=== PATIENT | male | born 1975 | race Caucasian/White ===

== ENCOUNTER 2021-10-22 07:15 | Emergency (ER) | payer BC, OTHER ==
[2021-10-22 07:54] VITALS: BP 133/81; PULSE 92; TEMP 98.1; BMI 31.7
[2021-10-22] MEDS ORDERED: KETOROLAC TROMETHAMINE 30 MG/1 ML VIAL IVPUSH ONE (09:17)
[2021-10-22] MEDS ORDERED: MAG HYDROX/AL HYDROX/SIMETH 30 ML UNIT-DOSE CUP PO ONE (09:17)
[2021-10-22] MEDS ORDERED: MAG HYDROX/AL HYDROX/SIMETH 30 ML UNIT-DOSE CUP ONE (09:34)
[2021-10-22] MEDS ORDERED: KETOROLAC TROMETHAMINE 30 MG/1 ML VIAL ONE (09:34)
[2021-10-22 10:30] LABS: BASO % 0.7 % (0-2.0); HEMATOCRIT 46.2 % (35.4-49); HEMOGLOBIN 15.9 GM/dL (11.7-16.9); LYMPH % 29.5 % (8-40); MCH 30.9 pg (25.7-33.7); MCHC 34.4 g/dl (32.0-35.9); MEAN CELL VOLUME 89.9 fl (80-96); MEAN PLT VOLUME 8.1 fl (7.5-11.1); MONO % 6.6 % (3.8-10.2); NEUT % 62.2 % (42.8-82.8); PLATELET COUNT 222 10^3/uL (134-434); RBC 5.14 M/mm3 (4.00-5.60); RDW 13.4 % (11.9-15.9); WHITE BLOOD COUNT 6.2 K/mm3 (4.0-10.0)
[2021-10-22 11:00] LABS: CHLORIDE 107 mmol/L (98-107); SODIUM 140 mmol/L (136-145)
[2021-10-22 11:04] LABS: BLOOD UREA NITROGEN 17.4 mg/dL (7-18)
[2021-10-22 11:05] LABS: ANION GAP 9 MMOL/L (8-16); CALCIUM 9.1 mg/dL (8.5-10.1); CO2 24 mmol/L (21-32); GLUCOSE,RANDOM 95 mg/dL (74-106)
[2021-10-22 11:06] LABS: LIPASE 116 U/L (73-393)
[2021-10-22 11:08] LABS: SGOT/AST 28 U/L (15-37); SGPT/ALT 47 U/L (13-61)
[2021-10-22 11:09] LABS: TOT PROT 7.6 g/dl (6.4-8.2)
[2021-10-22 11:10] LABS: ALK PHOS 63 U/L (45-117); BILIRUBIN,TOTAL 0.5 mg/dL (0.2-1)
== END 2021-10-22 13:02 | disposition home or self-care (01) ==
LOC: JER 07:15
PROC: 3E0333Z Introduction of Anti-inflammatory into Peripheral Vein, Percutaneous Approach (ICD-10-PCS; principal; 2021-10-22)
DX: R10.13 Epigastric pain (principal)
CPT/HCPCS: 36415; 71046-TC-FY; 71101-TC-LT-FY; 74177-TC; 80053; 83690; 84484; 85025; 93005; 93010; 99285-25; Q9967

== ENCOUNTER 2022-07-29 17:35 | Emergency (ER) | payer OTHER ==
[2022-07-29 17:49] VITALS: BP 147/82; PULSE 86; RESP 18; TEMP 98.4; BMI 32.4
[2022-07-29] MEDS ORDERED: IBUPROFEN 600 MG TABLET (FP) PO ONE ×2 (19:13→19:25)
[2022-07-29] MEDS ORDERED: diazePAM 5 MG TABLET PO ONE (19:13)
[2022-07-29] MEDS ORDERED: ACETAMINOPHEN 500 MG TABLET (FP) PO ONE (19:13)
[2022-07-29] MEDS ORDERED: ACETAMINOPHEN 500 MG TABLET (FP) ONE (19:25)
[2022-07-29] MEDS ORDERED: diazePAM 5 MG TABLET ONE (19:25)
== END 2022-07-29 20:55 | disposition home or self-care (01) ==
LOC: JERFT 17:35
DX: R07.81 Pleurodynia (principal)
CPT/HCPCS: 71046-TC-FY; 71101-TC-LT-FY; 93005; 93010; 99284-25

== ENCOUNTER 2022-09-23 12:19 | Emergency (ER) | payer OTHER ==
[2022-09-23 12:26] VITALS: BP 132/87; PULSE 79; RESP 18; TEMP 97.9; BMI 31.9
[2022-09-23] MEDS ORDERED: PANTOPRAZOLE SODIUM 40 MG VIAL IVPUSH ONE (14:16)
[2022-09-23] MEDS ORDERED: ACETAMINOPHEN 500 MG TABLET (FP) PO ONE (14:16)
[2022-09-23] MEDS ORDERED: SODIUM CHLORIDE 0.9% 500 ML INFUS.BAG IV ONE (14:16)
[2022-09-23] MEDS ORDERED: PANTOPRAZOLE SODIUM 40 MG/100 ML BAG IVPB ONE (14:44)
[2022-09-23] MEDS ORDERED: ACETAMINOPHEN INJECTION 100 ML IVPB ONE (14:44)
[2022-09-23] MEDS ORDERED: ACETAMINOPHEN 1000 MG/100 ML BAG IVPB ONE (14:51)
[2022-09-23 15:36] LABS: BASO % 0.6 % (0-2.0); EOS % 1.4 % (0-4.5); HEMATOCRIT 45.9 % (35.4-49); HEMOGLOBIN 15.5 GM/dL (11.7-16.9); LYMPH % 30.2 % (8-40); MCH 30.3 pg (25.7-33.7); MCHC 33.7 g/dl (32.0-35.9); MEAN CELL VOLUME 89.8 fl (80-96); MEAN PLT VOLUME 8.2 fl (7.5-11.1); MONO % 7.5 % (3.8-10.2); NEUT % 60.3 % (42.8-82.8); PLATELET COUNT 220 10^3/uL (134-434); RBC 5.11 M/mm3 (4.00-5.60); RDW 13.1 % (11.9-15.9); URINE APPEARANCE CLEAR; URINE BILIRUBIN NEGATIVE (NEGATIVE); URINE COLOR YELLOW; URINE GLUCOSE (UA) NEGATIVE (NEGATIVE); URINE KETONE NEGATIVE (NEGATIVE); URINE LEUK ESTERASE NEGATIVE (NEGATIVE); URINE NITRITE NEGATIVE (NEGATIVE); URINE PROTEIN NEGATIVE (NEGATIVE); URINE UROBILINOGEN 0.2 mg/dL (0.2-1.0)
[2022-09-23 16:06] LABS: ALBUMIN 4.2 g/dl (3.4-5.0); BLOOD UREA NITROGEN 12.9 mg/dL (7-18)
[2022-09-23 16:09] LABS: CREATININE 0.9 mg/dL (0.55-1.3)
[2022-09-23 16:10] LABS: TOT PROT 7.2 g/dl (6.4-8.2)
[2022-09-23 16:11] LABS: BILIRUBIN,TOTAL 0.3 mg/dL (0.2-1)
== END 2022-09-23 17:47 | disposition home or self-care (01) ==
LOC: JER 12:19
PROC: 3E0333Z Introduction of Anti-inflammatory into Peripheral Vein, Percutaneous Approach (ICD-10-PCS; principal; 2022-09-23)
PROC: 3E033GC Introduction of Other Therapeutic Substance into Peripheral Vein, Percutaneous Approach (ICD-10-PCS; 2022-09-23)
DX: R10.32 Left lower quadrant pain (principal)
CPT/HCPCS: 0241U-QW; 36415; 74177-TC; 80053; 81003; 83690; 85025; 99285-25; Q9967

== ENCOUNTER 2022-11-27 21:43 | Emergency (ER) | payer OTHER ==
[2022-11-27 21:56] VITALS: RESP 18; BMI 32.2
[2022-11-27] MEDS ORDERED: MECLIZINE HCL 25 MG TABLET (FP) PO ONE (23:05)
[2022-11-27] MEDS ORDERED: ONDANSETRON *ODT* 4 MG TABLET SL ONE (23:05)
[2022-11-28] MEDS ORDERED: ONDANSETRON *ODT* 4 MG TABLET ONE
[2022-11-28] MEDS ORDERED: MECLIZINE HCL 25 MG TABLET (FP) ONE
[2022-11-28 01:18] VITALS: BP 134/65; PULSE 86; TEMP 98.3
== END 2022-11-28 02:26 | disposition home or self-care (01) ==
LOC: JER 21:43
DX: R42 Dizziness and giddiness (principal)
CPT/HCPCS: 99283-25; Q0162